=== PATIENT | male | born 1985 | race Caucasian/White ===

== ENCOUNTER 2018-01-19 19:37 | Emergency (ER) | payer OTHER ==
--- NOTE | 2018-01-19 20:06 | EDM.PDOC ---
ED HPI GENERAL MEDICAL PROBLEM - General Chief Complaint: Lower Extremity Injury/Pain Stated Complaint: RT ANKLE TWISTED Time Seen by Provider: 01/19/18 19:39 Source of Information: Reports: Patient History Limitations: Reports: No Limitations - History of Present Illness INITIAL COMMENTS - FREE TEXT/NARRATIVE: HISTORY AND PHYSICAL: History of present illness: 32-year-old male presenting emergency department with chief complaint of right ankle pain. Patient states that he was walking down stairs at work when one of the metal grates that make up the stairs collapsed causing his right foot to fall through and ankle to twist inward. Said there was immediate pain but no popping noises heard. States he was able to put some weight on it initially after the accident but has not put any weight on it since. States pain right now is minimal as long as he is not up and walking on the extremity. Denies any loss of sensation , some decrease in range of motion secondary to pain, and pain is mostly located on the lateral surface of the ankle. Denies any other injury, loss of consciousness, or head injury. Takes no medications and is generally healthy with no allergies. On initial examination there is mild swelling to the lateral aspect of the right ankle, no decrease in range of motion strength or sensation. Neurovascular intact. Review of systems: As per history of present illness and below otherwise all systems reviewed and negative. Past medical history: As per history of present illness and as reviewed below otherwise noncontributory. Surgical history: As per history of present illness and as reviewed below otherwise noncontributory. Social history: No reported history of drug or alcohol abuse. Family history: As per history of present illness and as reviewed below otherwise noncontributory. Physical exam: HEENT: Atraumatic, normocephalic, pupils reactive, negative for conjunctival pallor or scleral icterus, mucous membranes moist, throat clear, neck supple, nontender, trachea midline. Lungs: Clear to auscultation, breath sounds equal bilaterally, chest nontender. Heart: S1S2, regular, negative for clicks, rubs, or JVD. Abdomen: Soft, nondistended, nontender. Negative for masses or hepatosplenomegaly. Negative for costovertebral tenderness. Pelvis: Stable nontender. Genitourinary: Deferred. Rectal: Deferred. Extremities: See H&P, mild swelling to the lateral aspect of the right ankle, negative for cords or calf pain. Neurovascular unremarkable. Neuro: Awake, alert, oriented. Cranial nerves II through XII unremarkable. Cerebellum unremarkable. Motor and sensory unremarkable throughout. Exam nonfocal. Diagnostics: Right ankle x-ray Therapeutics: Ice, gel stirrup splint, Crutches Impression: Grade 2 right ankle sprain Plan: X-ray of the right ankle revealed no acute osseous injuries or abnormalities. Patient most likely has a Grade 1/2 right ankle sprain. We did apply a gel stirrup splint and instructed patient to rest, ice, use compression splint, and elevation. Also instructed to use ibuprofen for pain and inflammation. Patient was discharged in good condition with instructions to follow-up with a primary care provider. We did supply numbers for him to see them. In addition he was instructed to return to emergency department if he had any new or worsening symptoms. Definitive disposition and diagnosis as appropriate pending reevaluation and review of above. - Related Data Allergies Allergy/AdvReac Type Severity Reaction Status Date / Time No Known Allergies Allergy Verified 01/19/18 19:54 Home Meds: Home Meds . [No Known Home Meds] 12/12/15 [History] Past Medical History - Past Health History Medical/Surgical History: Denies Medical/Surgical History - Past Surgical History Musculoskeletal Surgical History: Reports: Other (See Below) Other Musculoskeletal Surgeries/Procedures:: leg sx Social & Family History - Family History Family Medical History: Noncontributory - Tobacco Use Smoking Status *Q: Former Smoker Used Tobacco, but Quit: Yes Month/Year Tobacco Last Used: 1 - Recreational Drug Use Recreational Drug Use: No Review of Systems - Review of Systems Review Of Systems: ROS reveals no pertinent complaints other than HPI. ED EXAM, GENERAL - Physical Exam Exam: See Below Course - Vital Signs Last Recorded V/S: Last Vital Signs Temp 98.9 F 01/19/18 19:52 Pulse 87 01/19/18 19:52 Resp 18 01/19/18 19:52 BP 124/76 01/19/18 19:52 Pulse Ox 96 01/19/18 19:52 - Orders/Labs/Meds Orders: Active Orders 24 hr Category Date Time Status Ankle Min 3V Rt [CR] Stat Exams 01/19/18 20:01 Taken Departure - Departure Time of Disposition: 20:57 Disposition: Home, Self-Care 01 Condition: Good Clinical Impression: Grade 2 ankle sprain Qualifiers: Encounter type: initial encounter Laterality: right Qualified Code(s): S93.401A - Sprain of unspecified ligament of right ankle, initial encounter - Discharge Information *PRESCRIPTION DRUG MONITORING PROGRAM REVIEWED*: Not Applicable *COPY OF PRESCRIPTION DRUG MONITORING REPORT IN PATIENT MAULIK: Not Applicable Referrals: PCP,None [Primary Care Provider] - Forms: ED Department Discharge Additional Instructions: My general discharge The following information is given to patients seen in the emergency department who are being discharged to home. This information is to outline your options for follow-up care. We provide all patients seen in our emergency department with a follow-up referral. The need for follow-up, as well as the timing and circumstances, are variable depending upon the specifics of your emergency department visit. If you don't have a primary care physician on staff, we will provide you with a referral. We always advise you to contact your personal physician following an emergency department visit to inform them of the circumstance of the visit and for follow-up with them and/or the need for any referrals to a consulting specialist. The emergency department will also refer you to a specialist when appropriate. This referral assures that you have the opportunity for follow-up care with a specialist. All of these measure are taken in an effort to provide you with optimal care, which includes your follow-up. Under all circumstances we always encourage you to contact your private physician who remains a resource for coordinating your care. When calling for follow-up care, please make the office aware that this follow-up is from your recent emergency room visit. If for any reason you are refused follow-up, please contact the [facility] at and asked to speak to the emergency department charge nurse. [facility] [address] [place] [id number] [address] Follow-up with a primary care provider. You may call one of the above numbers and set up an appointment. Be sure to tell them are seen in emergency department and they wish for you to be followed up with. As we discussed rest, ice, compression with splint, and elevation. Also use ibuprofen for pain and inflammation. Maximum dose 3000 mg a day. Return emergency department if any new or worsening symptoms. - My Orders Last 24 Hours: My Active Orders 01/19/18 20:01 Ankle Min 3V Rt [CR] Stat - Assessment/Plan Last 24 Hours: My Active Orders 01/19/18 20:01 Ankle Min 3V Rt [CR] Stat
[2018-01-19 21:20] VITALS: BP 118/70
--- NOTE | 2018-01-21 13:12 | CR ---
EXAM DATE: 01/19/18 PATIENT'S AGE: 32 Patient: MARIUSZ BLAKE Facility: [place], [place] Site . Site : 1985 Study: XRay Extremity Right ankle [id number]/21/2018 8:32:46 PM Ordering Physician: Serjio Martell Final Report: INDICATION: Pain in right ankle. Patient states stepped on a grate in the ground and it flipped on him TECHNIQUE: Ankle radiograph 3 views right COMPARISON: None FINDINGS: Bones: No acute fractures or aggressive bone lesions are identified. Joints: The ankle mortise joint and the visualized hindfoot joints are unremarkable in appearance. No significant ankle effusion is seen. Soft tissue: Mild lateral swelling noted. No radiopaque foreign bodies are seen. IMPRESSION: 1. No acute osseous injuries or abnormalities are noted. Dictated by: Kash Ricci MD @ 01/19/2018 20:40:16 (Electronic Signature) Report Signed by Proxy. DEMETRIUS
== END 2018-01-19 21:10 | disposition home or self-care (01) ==
LOC: MW.ED 19:37
DX: S93.401A Sprain of unspecified ligament of right ankle, initial encounter (principal); W50.2XXA Accidental twist by another person, initial encounter
CPT/HCPCS: 73610-26-RT; 73610-RT; 99283